=== PATIENT | female | born 1970 | race Caucasian/White ===

== ENCOUNTER 2021-08-13 07:36 | Emergency (ER) | payer BC ==
[~2021-08-13] VITALS: Ht 165.1 cm; Wt 68.0 kg
[~2021-08-13 07:36] MED LIST: ALBUTEROL0.083 % IN; AMOXICILLIN500 MG OR; BELVIQ10 MG; BUPROPION150 M1 PO; BUSPIRONE10 MG PO; CELEBREX200 MG OR; CELEXA10 MG OR; CEPH500C57 OR; COMBIVENT IN; FLEXERIL OR; HYDROCHLOROT12.5 M1 PO; HYDROCODONE/ACE1 TAB PO; LORTAB 5/3255 MG PO; MORPHINE SUL15 M2 OR; NAPROSYN500 MG PO; NO MEDS; NORCO1 TA1 OR; NORCO1 TAB OR; OXYCODONE10 MG OR; SINGULAIR10 MG OR; TOPAMAX50 MG PO; TRAMADOL HCL50 MG PO; ULTRAM50 M1 PO; VENTOLIN HF1; WELLBUTRIN75 M1 PO; ZOCOR20 MG OR
[2021-08-13 07:53] VITALS: BP 115/71
[2021-08-13 08:00] VITALS: BP 116/72
[2021-08-13 08:30] VITALS: BP 101/64
[2021-08-13 08:57] VITALS: BP 101/64
== END 2021-08-13 09:02 | disposition home or self-care (01) | DRG 556 ==
LOC: ED 07:36
DX: M25.562 Pain in left knee (principal)